=== PATIENT | male | born 1955 | race Caucasian/White ===

== ENCOUNTER 2017-08-27 10:19 | Day surgery (SDC) | payer OTHER ==
[~2017-08-27] VITALS: Ht 180.3 cm; Wt 94.1 kg
[2017-08-27 11:38] VITALS: BP 125/86
[2017-08-27] MEDS ORDERED: ASPI-621 PO (11:47)
[2017-08-27] MEDS ORDERED: LISI2.5T PO (11:47)
[2017-08-27] MEDS ORDERED: MAGN300C PO (11:47)
[2017-08-27] MEDS ORDERED: DIPH25CA61 PO (11:47)
[2017-08-27] MEDS ORDERED: FENTANYL PF 100 MCG/2ML ONE (12:06)
[2017-08-27] MEDS ORDERED: MIDAZOLAM 1 MG/ML, 5ML ONE (12:06)
[2017-08-27] MEDS ORDERED: BIVALIRUDIN 250 MG ONE (12:07)
[2017-08-27] MEDS ORDERED: VERAPAMIL 2.5 MG/ML, 2ML ONE (12:07)
[2017-08-27] MEDS ORDERED: TICAGRELOR 90 MG TABLET ONE (12:07)
[2017-08-27] MEDS ORDERED: LIDOCAINE 2%, 20ML ONE (12:07)
[2017-08-27] MEDS ORDERED: HEPARIN 1,000 UNITS/ML, 10ML ONE (12:07)
[2017-08-27] MEDS ORDERED: NITROGLYCERIN 5 MG/ML, 10ML ONE (12:07)
[2017-08-27] MEDS ORDERED: SODIUM CHLORIDE 0.9% 1,000 ML IV SCH (13:11)
== END 2017-08-27 15:45 | disposition home or self-care (01) ==
LOC: CACL 10:19
PROVIDERS: ATTEND Internal Medicine Cardiovascular Disease
DX: I25.10 Atherosclerotic heart disease of native coronary artery without angina pectoris (principal); I10 Essential (primary) hypertension; K21.9 Gastro-esophageal reflux disease without esophagitis; G47.33 Obstructive sleep apnea (adult) (pediatric); Z79.82 Long term (current) use of aspirin
CPT/HCPCS: 93458; 99156; C1769; C1894; J1644; J2250; J3010; J3490; Q9967; J0583